=== PATIENT | female | born 1955 | race African-American/Black ===

== ENCOUNTER 2017-04-03 16:24 | Emergency (ER) | payer BC | END 2017-04-03 19:13 | disposition home or self-care (01) | LOC: ER 16:24 | PROC: 2W3LX1Z Immobilization of Right Lower Extremity using Splint (ICD-10-PCS; principal; 2017-04-03) | DX: M25.461 Effusion, right knee (principal); M25.561 Pain in right knee; F17.200 Nicotine dependence, unspecified, uncomplicated; Z88.5 Allergy status to narcotic agent | CPT/HCPCS: 73560-RT; 99283; J1170 ==